=== PATIENT | female | born 1995 | race Caucasian/White ===

== ENCOUNTER → 2016-09-15 | Outpatient (CLI) | payer OTHER ==
[~2016-09-15] MED LIST: BCPILLS PO; IBUP-1428 PO; MULT-506 PO; PARO10TA4 PO; TRAZ50TA35 PO
== END | disposition home or self-care (01) ==
LOC: C.RDSM 14:55
PROVIDERS: ATTEND Family Medicine
DX: M54.5 Low back pain (principal)

== ENCOUNTER → 2016-09-22 | Outpatient (CLI) | payer OTHER ==
--- NOTE | 2016-09-22 18:58 | DIAGNOSTIC IMAGING REPORT ---
BONE SCAN OF THE LUMBAR SPINE WITH SPECT IMAGING CLINICAL HISTORY: LUMBAR SPINE STRESS FRACTURE COMPARISON STUDY: Conventional radiographic study dated 09/15/2016 FINDINGS: The patient was injected with 26.5 mCi of technetium 99m MDP. Three-hour delayed camera spot images of the lumbar spine were obtained. These were supplemented with SPECT imaging with sagittal, coronal, and axial reformats. Planar imaging is normal. SPECT imaging is normal. IMPRESSION: Normal study Electronically signed by: Christian Rivera M.D. 09/22/2016 6:57 PM Dictated Date/Time: 09/22/2016 6:54 PM
== END | disposition home or self-care (01) ==
LOC: C.NUCL 15:00
PROVIDERS: ATTEND Family Medicine
DX: M43.06 Spondylolysis, lumbar region (principal)

== ENCOUNTER → 2016-12-06 | Outpatient (CLI) | payer OTHER | END | disposition home or self-care (01) | LOC: C.LAB 10:09 | PROVIDERS: ATTEND Family Medicine | DX: R42 Dizziness and giddiness (principal) ==

== ENCOUNTER → 2017-03-09 | Day surgery (SDC) | payer OTHER ==
[2017-03-03 13:15] VITALS: Ht 157.5 cm; Wt 60.5 kg
[~2017-03-09] VITALS: Ht 157.5 cm; Wt 60.5 kg
[~2017-03-09] MED LIST changes: +BUPIVACAINE 0.25% 2.5MG/ML PF 10 ML VIAL ONE; -IBUP-1428 PO; +IOPAMIDOL INJ 61% 15 ML VIAL ONE; +LIDOCAINE HCL 1% MPF 5 ML VIAL ONE; -PARO10TA4 PO; -TRAZ50TA35 PO
--- NOTE | 2017-03-09 13:04 | History & Physical Bridge - [place] ---
H&P Re-Evaluation Bridge Note: I have examined the patient, reviewed the History & Physical and in the interval since the performance of the History & Physical I have noted the following changes of clinical significance: No changes noted
[2017-03-09 13:24] VITALS: TEMP 36.8
--- NOTE | 2017-03-09 13:31 | Discharge Instructions ---
Discharge Instructions Date of Service Mar 09, 2017. Visit Reason for Visit: Sacroiliitis Discharge Discharge Diagnosis / Problem: low back pain Discharge Goals Goal(s): Decrease discomfort, Improve function Activity Recommendations Activity Limitations: resume your previous activity Anesthesia . Post Anesthesia Instructions: If you have had General Anesthesia or IV Sedation: * Do not drive today. * Resume driving when surgeon permits. * Do not make important decisions or sign legal documents today. * Call surgeon for: 1. Temperature elevations greater than 101 degrees F. 2. Uncontrollable pain. 3. Excessive bleeding. 4. Persistent nausea and vomiting. 5. Medication intolerance (nausea, vomiting or rash). * For nausea and vomiting use only clear liquids such as: tea, soda, bouillon until nausea subsides, then gradually increase diet as tolerated. * If you have any concerns or questions, call your surgeon's office. If physician is unavailable and it is an emergency, call 911 or go to the nearest emergency room. . Diet Recommendations Recommended Home Diet: resume previous diet Procedures Procedures Performed: RIGHT SACROILIAC JOINT INJECTION Pending Studies Studies pending at discharge: no Medical Emergencies . Who to Call and When: Medical Emergencies: If at any time you feel your situation is an emergency, please call 911 immediately. . Non-Emergent Contact Non-Emergency issues call your: Specialist . . "Provider Documentation" section prepared by Daniel Loo. .
[2017-03-09 13:32] VITALS: BP 109/75; PULSE 55; O2SAT 99
--- NOTE | 2017-03-09 13:45 | OPERATIVE REPORT ---
DATE OF OPERATION: 03/09/2017 PREOPERATIVE DIAGNOSIS: Right sacroiliitis. POSTOPERATIVE DIAGNOSIS: Same. PROCEDURE: Right sacroiliac joint injection under fluoroscopic guidance. SURGEON: Dr. Daniel Loo. 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 She notes that the pain gets exacerbated when she does landing routines solely on the right leg. It limits her in competition and practice and she presents today for treatment of the left SI joint under fluoroscopic guidance. PHYSICAL EXAMINATION: Pleasant female seated comfortably. She is point tender to palpation of her right SI joint. It is worse with extension. Negative seated, negative supine straight leg raise. Positive Geoffrey maneuver on the right. Positive sacral distraction and compression maneuvers on the right. CONSENT: Verbal and written consent was obtained from the patient. Risks and benefits were reviewed. Risks include but are not limited to abscess and allergic reaction. The patient wishes to proceed. PROCEDURE: The patient was taken back to the special procedures room of the [facility] where she was maintained in a prone position. Backside was cleansed with Betadine x3 and a dry sterile dressing was applied. Fluoroscope was used to identify the right SI joint and the overlying skin was anesthetized with 2-1/2 mL of lidocaine 1% with a 25 gauge 1.5-inch needle. A 25 gauge 3.5 inch Tuohy needle was then directed under fluoroscopic guidance into the joint. There was a give as it entered the joint. Isovue-300 contrast 0.25 mL demonstrated intra-articular uptake of the needle tip. She then underwent injection after negative aspiration of 40 mg of Depo-Medrol and 1.5 mL of bupivacaine 0.25%. Injection was well tolerated. DISPOSITION: 1. The patient is taken out into the discharge recovery area where she will be discharged home once discharge criteria have been met. 2. Follow up in the [facility] office in 2-4 weeks. I attest to the content of the Intraoperative Record and any orders documented therein. Any exception s are noted below.
== END | disposition home or self-care (01) ==
LOC: X.SURG 12:12
PROVIDERS: ATTEND Physical Medicine & Rehabilitation
DX: M46.1 Sacroiliitis, not elsewhere classified (principal); Z79.3 Long term (current) use of hormonal contraceptives

== ENCOUNTER → 2017-05-12 | Day surgery (SDC) | payer OTHER ==
[2017-04-28 11:22] VITALS: Ht 157.5 cm; Wt 60.5 kg
[~2017-05-12] VITALS: Ht 157.5 cm; Wt 60.5 kg
[~2017-05-12] MED LIST changes: +SERT25TA PO
[2017-05-12 13:39] VITALS: TEMP 36.6
--- NOTE | 2017-05-12 13:46 | Discharge Instructions ---
Discharge Instructions Date of Service May 12, 2017. Visit Reason for Visit: Sacroiliitis Discharge Discharge Diagnosis / Problem: low back pain Discharge Goals Goal(s): Decrease discomfort, Improve function Activity Recommendations Activity Limitations: resume your previous activity Anesthesia . Post Anesthesia Instructions: If you have had General Anesthesia or IV Sedation: * Do not drive today. * Resume driving when surgeon permits. * Do not make important decisions or sign legal documents today. * Call surgeon for: 1. Temperature elevations greater than 101 degrees F. 2. Uncontrollable pain. 3. Excessive bleeding. 4. Persistent nausea and vomiting. 5. Medication intolerance (nausea, vomiting or rash). * For nausea and vomiting use only clear liquids such as: tea, soda, bouillon until nausea subsides, then gradually increase diet as tolerated. * If you have any concerns or questions, call your surgeon's office. If physician is unavailable and it is an emergency, call 911 or go to the nearest emergency room. . Diet Recommendations Recommended Home Diet: resume previous diet Procedures Procedures Performed: Right Sacroiliac Joint Injection Pending Studies Studies pending at discharge: no Medical Emergencies . Who to Call and When: Medical Emergencies: If at any time you feel your situation is an emergency, please call 911 immediately. . Non-Emergent Contact Non-Emergency issues call your: Specialist . . "Provider Documentation" section prepared by Daniel Loo. .
[2017-05-12 13:52] VITALS: BP 110/63; PULSE 59; O2SAT 98
--- NOTE | 2017-05-12 14:23 | OPERATIVE REPORT ---
DATE OF OPERATION: 05/12/2017 PREOPERATIVE DIAGNOSIS: Right sacroiliitis. POSTOPERATIVE DIAGNOSIS: Same. PROCEDURE: Right sacroiliac joint injection under fluoroscopic guidance. SURGEON: Dr. Daniel Loo. INDICATIONS: The patient is a 21-year-old white female who has a greater than 1 year history of SI pain. 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 PHYSICAL EXAMINATION: Pleasant female seated comfortably. She is point tender to palpation over the right SI joint, positive Geoffrey maneuver on the right, positive sacral distraction and compression maneuvers on the right, normal motor and sensory exam. CONSENT: Verbal and written consent was obtained from the patient. Risks and benefits were reviewed. Risks include but are not limited to abscess and allergic reaction. The patient wishes to proceed. PROCEDURE: The patient was taken back to the special procedures room of [facility]. She was maintained in a prone position. Backside was cleansed with Betadine x3 and a dry sterile dressing was applied. Fluoroscope was used to identify the right SI joint and the overlying skin was anesthetized with 2.5 mL of lidocaine 1% with a 25 gauge 1.5-inch needle. A 25 gauge 3.5 inch spinal needle was then easily directed into the joint. There was a give as it entered the joint. Isovue-300 contrast 0.25 mL demonstrated it to be intraarticularly placed. She underwent injection after negative aspiration of 40 mg of Depo-Medrol and 1.5 mL of bupivacaine 0.25%. Injection was well tolerated. DISPOSITION: 1. The patient is taken out into the discharge recovery area where she will be discharged home once discharge criteria have been met. 2. Follow up in the [facility] office in 2-4 weeks. I attest to the content of the Intraoperative Record and any orders documented therein. Any exception s are noted below.
== END | disposition home or self-care (01) ==
LOC: X.SURG 12:39
PROVIDERS: ATTEND Physical Medicine & Rehabilitation
DX: M46.1 Sacroiliitis, not elsewhere classified (principal)